=== PATIENT | female | born 1990 | race Caucasian/White ===

== ENCOUNTER 2018-03-12 10:34 | Emergency (ER) | payer OTHER ==
[~2018-03-12] VITALS: Ht 152.4 cm; Wt 63.5 kg
[2018-03-12] MEDS ORDERED: METPRE4DP PO (12:07)
[2018-03-12] MEDS ORDERED: Zithromax250 MG PO (12:07)
== END 2018-03-12 12:15 | disposition home or self-care (01) ==
LOC: ER 10:34
DX: R05 Cough (principal)
CPT/HCPCS: 71046; 99283

== ENCOUNTER 2018-05-20 13:36 | Emergency (ER) | payer OTHER ==
[~2018-05-20] VITALS: Ht 152.4 cm; Wt 150.0 kg
[~2018-05-20 13:36] MED LIST: METPRE4DP PO; Zithromax250 MG PO
[2018-05-20 14:30] LABS: Chloride (POC) 103 mmol/L (98-108); Creatinine (POC) 0.8 mg/dL (0.6-1.0); Glucose (ISTAT POC) 98 mg/dL (70-99); Hemoglobin (POC) 12.9 g/dL (12.0-16.0); Potassium (POC) 3.5 mmol/L (3.5-5.5); Sodium (POC) 141 mmol/L (135-148); Total CO2 (POC) 26 mmol/L (21-32)
== END 2018-05-20 16:52 | disposition home or self-care (01) ==
LOC: ER 13:36
PROVIDERS: Nurse Practitioner Family
DX: R07.2 Precordial pain (principal); F32.9 Major depressive disorder, single episode, unspecified; Z88.1 Allergy status to other antibiotic agents; Z79.899 Other long term (current) drug therapy; R07.81 Pleurodynia
CPT/HCPCS: 36415; 71260; 80047; 85014; 99284; Q9967